=== PATIENT | female | born 1960 | race Caucasian/White ===

== ENCOUNTER → 2017-04-07 | Outpatient (CLI) | payer BC ==
--- NOTE | 2017-04-07 09:03 | MM ---
Reason for exam: follow-up at short interval from prior study. History: Patient is postmenopausal, history of other cancer, and had first child at age 36. Family history of breast cancer in sister at age 59. US discontinued breast core LT of the left breast, October 13, 2016. Benign excisional biopsy of the left breast, 2013. Benign stereotactic core biopsy of the left breast, 2011. Physical Findings: Nurse Summary: 1cm nodule in the right breast at 5 o'clock (nurse mm). MG 3D Diag Mammo W/Cad LT CC and MLO view(s) were taken of the left breast. The breast tissue is heterogeneously dense. This may lower the sensitivity of mammography. There is no discrete abnormality. These results were verbally communicated with the patient and result sheet given to the patient on 04/07/17. ASSESSMENT: Incomplete: need additional imaging evaluation, BI-RAD 0 RECOMMENDATION: Ultrasound of both breasts.
--- NOTE | 2017-04-07 09:06 | USB ---
Reason for exam: additional evaluation requested from abnormal screening. History: Patient is postmenopausal, history of other cancer, and had first child at age 36. Family history of breast cancer in sister at age 59. US discontinued breast core LT of the left breast, October 13, 2016. Benign excisional biopsy of the left breast, 2013. Benign stereotactic core biopsy of the left breast, 2011. US Breast BILAT Right breast ultrasound includes all four quadrants, the retroareolar region and axilla. Finding demonstrates no cystic or solid lesion seen. Left breast ultrasound includes all four quadrants, the retroareolar region and axilla. Finding demonstrates no cystic or solid lesion seen. These results were verbally communicated with the patient and result sheet given to the patient on 04/07/17. ASSESSMENT: Negative, BI-RAD 1 RECOMMENDATION: Routine screening mammogram of both breasts in 6 months. Back on schedule.
== END | disposition home or self-care (01) ==
LOC: RADMAMWWP 07:06
PROVIDERS: ATTEND Surgery
DX: R92.8 Other abnormal and inconclusive findings on diagnostic imaging of breast (principal)
CPT/HCPCS: 76641; G0206; G0279

== ENCOUNTER → 2018-05-24 | Day surgery (SDC) | payer BC ==
[2018-05-19 09:11] VITALS: BMI 21.4
[~2018-05-24] MED LIST: DEXAMETHASONE SOD PHOS (MDV) 100 MG/10 ML VIAL ONE; HEPARIN SODIUM,PORCINE 5,000 UNIT/ML 1 ML VIAL SQ ONE; MIDAZOLAM 2 MG/2 ML VIAL ONE; ONDANSETRON 4 MG/2 ML VIAL ONE; PROPOFOL 10 MG/ML 20 ML VIAL IV ONE; Pre Op ABX Message 1 EACH MISC MISCELLANE ONE; fentaNYL (PF) 50 MCG/ML 2 ML AMP ONE
--- NOTE | 2018-05-24 16:06 | P.OP ---
Date of Procedure: 05/24/18 Preoperative Diagnosis: Left thigh lipoma Postoperative Diagnosis: Left thigh lipoma Procedure(s) Performed: Excision of left thigh lipoma Anesthesia: MAC Surgeon: Deepak Viera Estimated Blood Loss (ml): 5 Pathology: other (Lipoma) Condition: stable Disposition: PACU Description of Procedure: The patient's placed on the operative table in the supine position. She received IV sedation. Her left thigh was prepped and draped usual fashion. A skin incision was made over the lipoma. And then using blunt sharp dissection with cautery the lipoma was excised. The lipoma measured prostate 5 cm diameter. The skin was closed with interrupted 3-0 Monocryl suture. Dermabond was applied. Patient top she will was sent to recovery in stable condition.
== END ==
LOC: OR 06:48
PROVIDERS: ATTEND Surgery
DX: D17.24 Benign lipomatous neoplasm of skin and subcutaneous tissue of left leg (principal); Z88.0 Allergy status to penicillin
CPT/HCPCS: 88304; 27337; J2250; J2405; J3010; J1100; J2704

== ENCOUNTER → 2018-11-02 | Outpatient (CLI) | payer BC ==
--- NOTE | 2018-11-03 14:15 | MM ---
Reason for exam: screening (asymptomatic). Last mammogram was performed 1 year and 7 months ago. History: Patient is postmenopausal, history of other cancer, and had first child at age 36. Family history of breast cancer in sister at age 59. US discontinued breast core LT of the left breast, October 13, 2016. Benign excisional biopsy of the left breast, 2013. Benign stereotactic core biopsy of the left breast, 2011. Physical Findings: A clinical breast exam by your physician is recommended on an annual basis and results should be correlated with mammographic findings. MG 3D Screening Mammo W/Cad Bilateral CC and MLO view(s) were taken. Prior study comparison: April 07, 2017, left breast MG 3d diag mammo w/cad LT. The breast tissue is extremely dense which could obscure a lesion on mammography. Finding: There are typically benign punctate, regional diffuse calcifications in the upper outer quadrant of the left breast. Previous mammotome biopsy in the left breast. No significant changes in finding since April 07, 2017. ASSESSMENT: Benign, BI-RAD 2 RECOMMENDATION: Routine screening mammogram of both breasts in 1 year.
== END | disposition home or self-care (01) ==
LOC: RADMAMWWP 06:56
PROVIDERS: ATTEND Family Medicine
DX: Z12.31 Encounter for screening mammogram for malignant neoplasm of breast (principal)
CPT/HCPCS: 77063; 77067